=== PATIENT | male | born 1955 | race Caucasian/White ===

== ENCOUNTER → 2019-10-12 | Outpatient (CLI) | payer MEDICARE, OTHER ==
[2019-10-12 09:57] LABS: Hematocrit 48.8 % (37.0-53.0); Hemoglobin 16.6 g/dL (13.5-17.5); Mean Corpuscular HGB 31.8 pg (26.0-34.0); Mean Corpuscular Volume 94 fL (80-100); RDW Coefficient Variation 11.9 % (11.7-14.2); RDW Standard Deviation 41.7 fL (35.1-46.3); Red Blood Cell Count 5.22 M/mm3 (4.30-5.90)
[2019-10-12 09:59] LABS: Mean Platelet Volume 10.5 fL (9.1-12.4)
[2019-10-12 10:14] LABS: BASOPHILS ABSOLUTE MAN 0.15 K/mm3 (0.00-0.23); BASOPHILS PERCENT MAN 1 % (0-2); EOSINOPHILS ABSOLUTE MAN 0.77 K/mm3 (0.00-0.68); EOSINOPHILS PERCENT MAN 5 % (0-6); LYMPHOCYTES % ATYPICAL MANUAL 6 % (0-0); LYMPHOCYTES ABSOLUTE MAN 4.96 K/mm3 (0.84-5.20); LYMPHOCYTES PERCENT MAN 26 % (21-46); MONOCYTES ABSOLUTE MAN 1.24 K/mm3 (0.16-1.47); MONOCYTES PERCENT MAN 8 % (4-13); NEUTROPHILS ABSOLUTE MAN 8.37 K/mm3 (1.96-9.15); SEG NEUTROPHILS PERCENT MAN 54 % (41-73); TOTAL CELLS COUNTED 100
[2019-10-12 10:37] LABS: Alanine Aminotransfer (ALT/SGP 23 U/L (12-78); Albumin, Blood 3.9 g/dL (3.4-5.0); Alk Phos 85 U/L (50-136); Anion Gap 5 mmol/L (6-16); Aspartate Aminotrans (AST/SGOT 11 U/L (12-37); Bilirubin, Total 0.7 mg/dL (0.1-1.0); Blood Urea Nitrogen 12 mg/dL (8-24); CO2, Blood 24 mmol/L (21-32); Calcium, Blood 9.5 mg/dL (8.5-10.1); Chloride, Blood 108 mmol/L (98-108); Creatinine, Blood 0.46 mg/dL (0.60-1.20); Glomerular Filtration Rate >60 (60-); Glucose, Blood 156 mg/dL (70-99); Potassium, Blood 3.9 mmol/L (3.5-5.5); Sodium, Blood 137 mmol/L (136-145); Total Protein, Blood 7.9 g/dL (6.4-8.2)
== END ==
LOC: LAB 09:15 → LAB SHORT 09:15
PROVIDERS: Nurse Practitioner Family
DX: R10.84 Generalized abdominal pain (principal)
CPT/HCPCS: 80053; 83690; 85025

== ENCOUNTER 2021-05-10 10:30 | Observation (INO) | payer OTHER, MEDICARE ==
[~2021-05-10] VITALS: Ht 167.6 cm; Wt 83.9 kg
[~2021-05-10 10:30] MED LIST: AMLODIPINE BES2.5 MG PO; ATOR20 PO; GENTEAL TEARS3.5 GM BOTHEYES; ISOSORBIDE MONO60 MG PO; JARDIANCE25 MG PO; LOW DOSE ASPIRI81 M1 PO; METFORMIN HCL500 M3 PO; NITROGLYCERIN0.4 M3 SL
[2021-05-10 11:36] LABS: Hematocrit 47.2 % (37.0-53.0); Hemoglobin 16.2 g/dL (13.5-17.5); Mean Corpuscular HGB 32.3 pg (26.0-34.0); Mean Corpuscular HGB Conc 34.3 g/dL (31.5-36.5); Mean Corpuscular Volume 94 fL (80-100); RDW Coefficient Variation 12.9 % (11.7-14.2); RDW Standard Deviation 44.8 fL (35.1-46.3); Red Blood Cell Count 5.01 M/mm3 (4.30-5.90); White Blood Cell Count 16.73 K/mm3 (4.00-11.30)
[2021-05-10] MEDS ORDERED: LANTHANUM CARB500 MG (11:40)
[2021-05-10 11:44] LABS: Alanine Aminotransfer (ALT/SGP 22 U/L (12-78); Albumin, Blood 3.6 g/dL (3.4-5.0); Alk Phos 90 U/L (50-136); Anion Gap 5 mmol/L (6-16); Aspartate Aminotrans (AST/SGOT 14 U/L (12-37); Bilirubin, Total 0.6 mg/dL (0.1-1.0); Blood Urea Nitrogen 16 mg/dL (8-24); Bun/Creatinine Ratio 24.7 (12.0-20.0); CO2, Blood 28 mmol/L (21-32); Calcium, Blood 9.6 mg/dL (8.5-10.1); Chloride, Blood 106 mmol/L (98-108); Creatinine, Blood 0.65 mg/dL (0.60-1.20); Globulin, Blood 3.7 g/dL (2.2-4.0); Glomerular Filtration Rate >60 (60-); Glucose, Blood 162 mg/dL (70-99); Potassium, Blood 4.4 mmol/L (3.5-5.5); Sodium, Blood 139 mmol/L (136-145); Total Protein, Blood 7.3 g/dL (6.4-8.2)
[2021-05-10 11:49] LABS: Mean Platelet Volume 12.9 fL (9.1-12.4)
[2021-05-10 11:55] LABS: BASOPHILS ABSOLUTE MAN 0.16 K/mm3 (0.00-0.23); BASOPHILS PERCENT MAN 1 % (0-2); EOSINOPHILS ABSOLUTE MAN 0.16 K/mm3 (0.00-0.68); EOSINOPHILS PERCENT MAN 1 % (0-6); LYMPHOCYTES % ATYPICAL MANUAL 2 % (0-0); LYMPHOCYTES ABSOLUTE MAN 5.01 K/mm3 (0.84-5.20); LYMPHOCYTES PERCENT MAN 28 % (21-46); MONOCYTES ABSOLUTE MAN 1.33 K/mm3 (0.16-1.47); MONOCYTES PERCENT MAN 8 % (4-13); NEUTROPHILS ABSOLUTE MAN 10.03 K/mm3 (1.96-9.15); SEG NEUTROPHILS PERCENT MAN 60 % (41-73); TOTAL CELLS COUNTED 100
[2021-05-10] MEDS ORDERED: LATA.005SO BOTHEYES (13:24)
[2021-05-10 14:07] LABS: Source, Urine Clean Catch
[2021-05-10 14:12] LABS: Appearance, Urine Clear (Clear); Bilirubin, Urine Neg (Neg); Blood, Urine 1+ (Neg); Color, Urine Yellow (P-Yellow); Glucose Qualitative, Urine 4+ (Neg); Ketones, Urine 1+ (Neg); Leukocyte Esterase, Urine Neg (Neg); Nitrite, Urine Neg (Neg); Protein, Urine Neg (Neg); Urobilinogen, Urine NORM (Normal)
[2021-05-10 14:43] LABS: Bacteria Not Seen /hpf; Red Blood Cells, Urine 0-2 /hpf (0-2); Squamous Epithelial Cells Not Seen /hpf (Few); White Blood Cells, Urine Not Seen /hpf (0-5)
--- NOTE | 2021-05-10 14:44 | NUR ---
PT TO SDS FROM ER 12. ABX INFUSING AND MEDICATED FOR PAIN PRIOR TO ED DEPARTURE. NPO SINCE MIDNIGHT. VOIDS PRIOR TO SDS. History, Chart, Medications and Allergies reviewed before start of procedure. Lungs clear T/O to Auscultation.
[2021-05-10 15:05] LABS: SARS-Cov-2 (COVID-19) PCR, MMC NEGATIVE (NEGATIVE)
--- NOTE | 2021-05-10 18:34 | NUR ---
PT ARRIVED TO UNIT FROM PACU A&OX4. TRANSFERRED W/MINIMAL ASSIST FROM [place]PENISH TO BED AND THEN AMBULATED TO RESTROOM AND VOIDED 500 ML. DENIES PAIN, N/V OR SOB AT THIS TIME. CBG 151, DID NOT COVER; PT HAD NOT EATEN. ORIENTED TO ROOM AND CALL LIGHT.
[2021-05-11 04:48] LABS: BASOPHILS ABSOLUTE AUTO 0.02 K/mm3 (0.00-0.23); BASOPHILS PERCENT AUTO 0 % (0-2); EOSINOPHILS ABSOLUTE AUTO 0.01 K/mm3 (0.00-0.68); EOSINOPHILS PERCENT AUTO 0 % (0-6); Hematocrit 43.4 % (37.0-53.0); IMMATURE GRAN ABSOLUTE AUTO 0.04 K/mm3 (0.00-0.10); IMMATURE GRAN PERCENT AUTO 0 % (0-1); LYMPHOCYTES ABSOLUTE AUTO 2.35 K/mm3 (0.84-5.20); LYMPHOCYTES PERCENT AUTO 22 % (21-46); MONOCYTES ABSOLUTE AUTO 0.42 K/mm3 (0.16-1.47); MONOCYTES PERCENT AUTO 4 % (4-13); Mean Corpuscular HGB 32.4 pg (26.0-34.0); Mean Corpuscular HGB Conc 34.6 g/dL (31.5-36.5); Mean Corpuscular Volume 94 fL (80-100); NEUTROPHILS ABSOLUTE AUTO 7.66 K/mm3 (1.96-9.15); NEUTROPHILS PERCENT AUTO 73 % (41-73); RDW Coefficient Variation 12.7 % (11.7-14.2); RDW Standard Deviation 43.6 fL (35.1-46.3); Red Blood Cell Count 4.63 M/mm3 (4.30-5.90)
[2021-05-11 04:50] LABS: Platelet Count 126 K/mm3 (150-400)
--- NOTE | 2021-05-11 04:50 | NUR ---
SHIFT SUMMARY POD 1 FOR LAP APPY. X3 ABD LAP SITES W/STERI-STRIPS IN TACT. MINIMAL DRIED BLOOD TO LOWER ABD STERI-STRIP SITE. PT DENIES N/V AND IS TOLERATING A CLEAR LIQUID DIET AND FLUIDS W/O REPORT OF N/V. PT REPORTED SOME PAIN AND WAS MEDICATED PER EMAR. PT IS A&O X4 AND VERY PLEASANT. PT HAS APPEARED TO REST MOST OF THE NIGHT, COMFORTABLY IN HIS BED. PT CALLS APPROPRIATELY AND CALL LIGHT IS WITHIN REACH.
[2021-05-11] MEDS ORDERED: AMOCLA875 PO (13:51)
--- NOTE | 2021-05-11 14:30 | NUR ---
DISCHARGE PT HAS DONE VERY WELL TODAY. UP AMBULATING FREQ, VERY STEADY GAIT. TOLERATING DIET, PASSING GAS. PAIN WELL MANAGED w/ TORADOL. DECLINES W/C OUT & AMBULATES OUT w/ SPOUSE AT SIDE.
== END 2021-05-11 14:30 | disposition home or self-care (01) ==
LOC: ER 10:30 → SURS 10:31 → ER 13:56 → SURS 18:55
PROVIDERS: Emergency Medicine; ADMIT Surgery
PROC: 0DTJ4ZZ Resection of Appendix, Percutaneous Endoscopic Approach (ICD-10-PCS; principal; 2021-05-10 14:00)
DX: K35.33 Acute appendicitis with perforation, localized peritonitis, and gangrene, with abscess (principal); I10 Essential (primary) hypertension; E11.9 Type 2 diabetes mellitus without complications; Z88.5 Allergy status to narcotic agent; Z88.8 Allergy status to other drugs, medicaments and biological substances; Z87.891 Personal history of nicotine dependence; Z95.1 Presence of aortocoronary bypass graft; Z79.82 Long term (current) use of aspirin; Z79.84 Long term (current) use of oral hypoglycemic drugs; Z79.899 Other long term (current) drug therapy; Z20.822 Contact with and (suspected) exposure to COVID-19
CPT/HCPCS: 36415; 74177; 80053; 81001; 82947; 83690; 85025; 88304; 93005; 93010; 96365; 96375; 96376; 99285-25; A9270; G0378; J0694; J1100; J1815; J1885; J2250; J2270; J2405; J2704; J3010; J7030; J7120; Q9967; U0004

== ENCOUNTER 2022-06-07 15:10 | Day surgery (SDC) | payer OTHER ==
[~2022-06-07] VITALS: Ht 170.2 cm; Wt 84.2 kg
[~2022-06-07 15:10] MED LIST changes: +AMOCLA875 PO; +LANTHANUM CARB500 MG; +LATA.005SO BOTHEYES
--- NOTE | 2022-06-07 16:13 | NUR ---
06/07/22 1613 Carol Chi GTT: 1550 PLEDGITT: [id number]
== END 2022-06-07 17:21 | disposition home or self-care (01) ==
LOC: ORSCSDS 15:10
PROVIDERS: Ophthalmology
PROC: 08RK3JZ Replacement of Left Lens with Synthetic Substitute, Percutaneous Approach (ICD-10-PCS; principal; 2022-06-07 16:30)
DX: H25.12 Age-related nuclear cataract, left eye (principal); I10 Essential (primary) hypertension; I25.10 Atherosclerotic heart disease of native coronary artery without angina pectoris; Z87.891 Personal history of nicotine dependence; E11.9 Type 2 diabetes mellitus without complications; K21.9 Gastro-esophageal reflux disease without esophagitis; Z79.84 Long term (current) use of oral hypoglycemic drugs; Z79.899 Other long term (current) drug therapy; Z79.82 Long term (current) use of aspirin
CPT/HCPCS: 82947; J2001; J2250; J3010; J3301; J7040; V2632

== ENCOUNTER 2022-06-28 12:11 | Day surgery (SDC) | payer OTHER ==
[~2022-06-28] VITALS: Ht 170.2 cm; Wt 84.0 kg
--- NOTE | 2022-06-28 12:36 | NUR ---
06/28/22 1236 Shaun Miller CALL LIGHT WITHIN REACH. SLADE IN AT 1229 IN RIGHT EYE AND MIKE AT 1231
== END 2022-06-28 14:45 | disposition home or self-care (01) ==
LOC: ORSCSDS 12:11
DX: H25.11 Age-related nuclear cataract, right eye (principal); H40.1122 Primary open-angle glaucoma, left eye, moderate stage; H40.1111 Primary open-angle glaucoma, right eye, mild stage; H21.81 Floppy iris syndrome; I10 Essential (primary) hypertension; I25.10 Atherosclerotic heart disease of native coronary artery without angina pectoris; E11.9 Type 2 diabetes mellitus without complications; K21.9 Gastro-esophageal reflux disease without esophagitis; Z79.899 Other long term (current) drug therapy
CPT/HCPCS: 82947; J2001; J2250; J3010; J3301; J7040; V2632

== ENCOUNTER 2024-08-14 09:02 | Inpatient (IN) | payer MEDICARE, OTHER ==
[~2024-08-14] VITALS: Ht 167.6 cm; Wt 74.8 kg
[2024-08-14] MEDS ORDERED: Ondansetron HCl 2 MG / ML 2ML Vial IV PRN ×2 (10:05→14:05)
[2024-08-14 10:49] LABS: Albumin, Blood 3.9 g/dL (3.4-5.0); Albumin/Globulin Ratio 1.1 (0.8-1.8); Bilirubin, Total 0.5 mg/dL (0.1-1.0); Bun/Creatinine Ratio 29.6 (12.0-20.0); Calcium, Blood 9.6 mg/dL (8.5-10.1); Creatinine, Blood 0.54 mg/dL (0.60-1.20); Globulin, Blood 3.4 g/dL (2.2-4.0); Potassium, Blood 4.6 mmol/L (3.5-5.5); Total Protein, Blood 7.3 g/dL (6.4-8.2)
[2024-08-14 11:25] LABS: BASOPHILS ABSOLUTE AUTO 0.06 K/mm3 (0.00-0.23); BASOPHILS PERCENT AUTO 0 % (0-2); EOSINOPHILS ABSOLUTE AUTO 0.06 K/mm3 (0.00-0.68); EOSINOPHILS PERCENT AUTO 0 % (0-6); Hematocrit 47.8 % (37.0-53.0); Mean Corpuscular HGB 32.7 pg (26.0-34.0); Mean Corpuscular HGB Conc 33.5 g/dL (31.5-36.5); Mean Corpuscular Volume 98 fL (80-100); RDW Coefficient Variation 12.8 % (11.7-14.2); RDW Standard Deviation 45.8 fL (35.1-46.3); White Blood Cell Count 15.06 K/mm3 (4.00-11.30)
[2024-08-14 11:27] LABS: IMMATURE GRAN ABSOLUTE AUTO 0.07 K/mm3 (0.00-0.10); IMMATURE GRAN PERCENT AUTO 1 % (0-1); LYMPHOCYTES ABSOLUTE AUTO 5.71 K/mm3 (0.84-5.20); LYMPHOCYTES PERCENT AUTO 38 % (21-46); MONOCYTES ABSOLUTE AUTO 0.67 K/mm3 (0.16-1.47); MONOCYTES PERCENT AUTO 4 % (4-13); NEUTROPHILS ABSOLUTE AUTO 8.49 K/mm3 (1.96-9.15); NEUTROPHILS PERCENT AUTO 56 % (41-73)
[2024-08-14] MEDS ORDERED: FentaNYL Citrate 50 MCG/ML 2 ML Injection IV ONE (11:40)
[2024-08-14 12:50] LABS: BASOPHILS PERCENT MAN 0 % (0-2); EOSINOPHILS PERCENT MAN 0 % (0-6); LYMPHOCYTES % ATYPICAL MANUAL 1 % (0-0); LYMPHOCYTES ABSOLUTE MAN 5.42 K/mm3 (0.84-5.20); LYMPHOCYTES PERCENT MAN 35 % (21-46); METAMYELOCYTE ABSOLUTE MAN 0.15 K/mm3 (0.00-0.00); METAMYELOCYTE PERCENT MAN 1 % (0-0); MONOCYTES ABSOLUTE MAN 0.45 K/mm3 (0.16-1.47); MONOCYTES PERCENT MAN 3 % (4-13); NEUTROPHILS ABSOLUTE MAN 9.03 K/mm3 (1.96-9.15); SEG NEUTROPHILS PERCENT MAN 60 % (41-73); TOTAL CELLS COUNTED 100
[2024-08-14] MEDS ORDERED: HYDROmorphone HCl/Pf 1MG SYR IV ONE (13:30)
[2024-08-14] MEDS ORDERED: HYDROmorphone HCl/Pf 1MG SYR IV PRN (14:05)
[2024-08-14] MEDS ORDERED: FLU VACC TS2024-25(6MOS UP)/PF 45 MCG/0.5 ML SYRINGE IM SCH (14:10)
[2024-08-14] MEDS ORDERED: Vitamin D1000 UNI1 PO (14:32)
[2024-08-14] MEDS ORDERED: Amoxicillin500 MG PO (14:32)
[2024-08-14] MEDS ORDERED: DICLOFENAC SOD100 GM TOP (14:33)
[2024-08-14] MEDS ORDERED: DORZOPSO BOTHEYES (14:33)
[2024-08-14] MEDS ORDERED: Alphagan P5 ML BOTHEYES (14:34)
[2024-08-14] MEDS ORDERED: TIMO.5OPSO BOTHEYES (14:35)
[2024-08-14] MEDS ORDERED: NS 1,000 ML IV SCH (15:00)
[2024-08-14] MEDS ORDERED: Ampicillin Sod/Sulbactam Sod 3 GM in NS 100 ML IV SCH (15:00)
[2024-08-14 16:26] VITALS: BP 168/69
[2024-08-14] MEDS ORDERED: Insulin Human Lispro 100 Units/ML 3ML Syringe SC SCH (16:30)
--- NOTE | 2024-08-14 18:29 | NUR ---
ADMISSION: REPORT RECEIVED FROM ED RN. PT TO UNIT AT 1620, A/O, VSS. PT ABLE TO AMBULATE FROM GURNEY TO BED. PT REPORTS MINIMAL AT AT THIS TIME. REPORTS ABLE TO PASS SOME GAS. PT INSTRUCTED TO USE CALL LIGHT FOR IF NEED ASSISTANCE. PT ABLE TO MAKE NEEDS KNOWN
[2024-08-14 19:54] VITALS: BP 151/66
[2024-08-14] MEDS ORDERED: Latanoprost 0.005% Opth Soln 2.5 ML BOTHEYES SCH (21:00)
[2024-08-14] MEDS ORDERED: AmLODIPine Besylate 5 MG Tab PO SCH (21:00)
[2024-08-14] MEDS ORDERED: Atorvastatin 40 MG Tab PO SCH (21:00)
[2024-08-14] MEDS ORDERED: Timolol 0.5% Opth Soln 5 ML BOTHEYES SCH (21:00)
--- NOTE | 2024-08-15 04:23 | NUR ---
SHIFT SUMMARY; PATIENT SLEPT IN LONG INTERVALS, MEDICATED TWICE FOR PAIN, NPO AFTER MIDNIGHT.VSS. NS/75ML/HR ALL NIGHT.
[2024-08-15 04:54] LABS: Hemoglobin 14.7 g/dL (13.5-17.5); Mean Corpuscular HGB 33.2 pg (26.0-34.0); Mean Corpuscular HGB Conc 34.2 g/dL (31.5-36.5); Mean Corpuscular Volume 97 fL (80-100); Platelet Count 113 K/mm3 (150-400); RDW Coefficient Variation 12.8 % (11.7-14.2); RDW Standard Deviation 45.9 fL (35.1-46.3); Red Blood Cell Count 4.43 M/mm3 (4.30-5.90); White Blood Cell Count 14.93 K/mm3 (4.00-11.30)
[2024-08-15 05:37] LABS: Albumin, Blood 3.1 g/dL (3.4-5.0); Albumin/Globulin Ratio 1.1 (0.8-1.8); Bilirubin, Total 0.7 mg/dL (0.1-1.0); Bun/Creatinine Ratio 25.6 (12.0-20.0); Calcium, Blood 8.8 mg/dL (8.5-10.1); Creatinine, Blood 0.51 mg/dL (0.60-1.20); Globulin, Blood 2.7 g/dL (2.2-4.0); Potassium, Blood 3.9 mmol/L (3.5-5.5); Total Protein, Blood 5.8 g/dL (6.4-8.2)
[2024-08-15 06:24] VITALS: BP 145/69
[2024-08-15 07:36] VITALS: BP 131/58
[2024-08-15] MEDS ORDERED: Heparin Sodium 5000 Units/ML 1ML MDV SC SCH (09:00)
[2024-08-15] MEDS ORDERED: Isosorbide Mononitrate 60 MG TABCR PO SCH (09:00)
[2024-08-15] MEDS ORDERED: Aspirin 81 MG TabEC PO SCH (09:00)
[2024-08-15] MEDS ORDERED: Cholecalciferol 1000 Unit Tablet (=25MCG) PO SCH (09:00)
[2024-08-15 14:10] VITALS: BP 159/76
[2024-08-15] MEDS ORDERED: D5W-1/2NS 1,000 ML IV SCH (14:25)
--- NOTE | 2024-08-15 16:33 | NUR ---
SHIFT SUMMARY PT NEW DIAGNOSIS OF SBO PER CT SCAN. PLAN TO INSERT NGT TO LIS BEFORE SHIFT CHANGE PER DR. MURRAY. ABD DISTENDED AND INTERMITTENTLY PAINFUL. 1MG IV DILAUDID FOR PAIN CONTROL. PT INDEP TO THE RESTROOM. NAUSEA X1 WITH SCANT CLEAR EMESIS. IVF INFUSING PER ORDERS. AT BEDSIDE FOR SUPPORT. CALL LIGHT WITHIN REACH.
--- NOTE | 2024-08-15 18:10 | NUR ---
NGT TO LIS. LIGHT GREEN DRAINAGE PRESENT IN CANISTER. PT TOLERATED PROCEDURE WELL. VERIFIED PLACEMENT BY XRAY.
[2024-08-15 19:38] VITALS: BP 138/65
[2024-08-16 05:24] VITALS: BP 145/69
[2024-08-16 05:27] LABS: Hematocrit 49.3 % (37.0-53.0); Hemoglobin 16.9 g/dL (13.5-17.5); Mean Corpuscular HGB 33.1 pg (26.0-34.0); Mean Corpuscular HGB Conc 34.3 g/dL (31.5-36.5); Mean Corpuscular Volume 97 fL (80-100); RDW Coefficient Variation 12.5 % (11.7-14.2); RDW Standard Deviation 44.7 fL (35.1-46.3); White Blood Cell Count 16.49 K/mm3 (4.00-11.30)
[2024-08-16 05:32] LABS: Mean Platelet Volume 10.2 fL (9.1-12.4); Platelet Count 147 K/mm3 (150-400)
[2024-08-16 05:48] LABS: Bun/Creatinine Ratio 25.8 (12.0-20.0); Calcium, Blood 8.7 mg/dL (8.5-10.1); Creatinine, Blood 0.54 mg/dL (0.60-1.20); Potassium, Blood 3.8 mmol/L (3.5-5.5)
[2024-08-16 05:54] LABS: BASOPHILS PERCENT MAN 0 % (0-2); EOSINOPHILS PERCENT MAN 0 % (0-6); LYMPHOCYTES % ATYPICAL MANUAL 11 % (0-0); LYMPHOCYTES PERCENT MAN 26 % (21-46); MONOCYTES ABSOLUTE MAN 0.98 K/mm3 (0.16-1.47); MONOCYTES PERCENT MAN 6 % (4-13); NEUTROPHILS ABSOLUTE MAN 9.39 K/mm3 (1.96-9.15); SEG NEUTROPHILS PERCENT MAN 57 % (41-73); TOTAL CELLS COUNTED 100
--- NOTE | 2024-08-16 06:09 | NUR ---
SHIFT SUMMARY AOX4. VSS. NGT R NARES TO LIS, 850ML DRK GREEN/BROWN DRAINAGE OUT THIS SHIFT. PT DENIES N/V, CURRENTLY NPO EXCEPT ICE CHIPS. REPORTS 3/ ABD PAIN, MEDICATED 2x W/IV DILAUDID & PT ABLE TO REST WELL. IND W/URINAL, VOID MULT TIMES. CALL LIGHT IN REACH.
[2024-08-16 07:25] VITALS: BP 162/71
[2024-08-16] MEDS ORDERED: FentaNYL Citrate 50 MCG/ML 2 ML Injection IV PRN (07:50)
[2024-08-16] MEDS ORDERED: D5W-1/2NS 1,000 ML IV SCH (08:45)
[2024-08-16] MEDS ORDERED: Ondansetron HCl 2 MG / ML 2ML Vial IV PRN (11:00)
[2024-08-16] MEDS ORDERED: Ketorolac Tromethamine 30mg Vial IV PRN (11:00)
[2024-08-16 14:41] VITALS: BP 157/68
--- NOTE | 2024-08-16 17:04 | NUR ---
SHIFT SUMMARY PT ABD LESS DISTENDED AND SOFTER THIS EVENING. TOTAL NGT AMOUNT THIS SHIFT WAS 1100ML OF DARK GREEN DRAINAGE. NGT OUTPUT HAS SLOWED DOWN THIS EVENING COMPARED TO EARLIER THIS MORNING. PT REPORTS FLATUS T/O DAY AND WAS ABLE TO HAVE A LARGE SOLID BM THIS EVENING. PT HAS BEEN INDEP AMBULATING HALLWAY AND TOLERATING NGT BEING CLAMPED DURING THOSE WALKS. PT REPORTS LESS PAIN WITH TORADOL AND DESCRIBES HIS PAIN "HUNGER PAINS". IVF INFUSING PER ORDERS. PT STATES HE FEELS "BETTER" OVERALL AND HOPES TO HAVE THE NGT REMOVED TOMORROW. VSS. PT USES CALL LIGHT APPROPRIATELY.
[2024-08-16 19:24] VITALS: BP 152/69
[2024-08-16] MEDS ORDERED: Insulin Human Lispro 100 Units/ML 3ML Syringe SC SCH ×2 (21:00)
--- NOTE | 2024-08-17 01:29 | NUR ---
ASSUMED CARE @0100 REPORT FROM CHAN WEINER, PATIENT IS RESTING WITH CALL LIGHT IN REACH.
[2024-08-17 04:53] VITALS: BP 138/77
[2024-08-17 05:07] LABS: Hematocrit 42.7 % (37.0-53.0); Hemoglobin 14.8 g/dL (13.5-17.5); Mean Corpuscular HGB 32.9 pg (26.0-34.0); Mean Corpuscular HGB Conc 34.7 g/dL (31.5-36.5); Mean Corpuscular Volume 95 fL (80-100); RDW Coefficient Variation 12.5 % (11.7-14.2); RDW Standard Deviation 43.7 fL (35.1-46.3); White Blood Cell Count 13.82 K/mm3 (4.00-11.30)
--- NOTE | 2024-08-17 05:19 | NUR ---
SUMMARY PATIENT IS RESTING AT THIS TIME, DENIES NEEDS. REPORTS PASSING FLATUS, VSS. IND IN ROOM. POSSIBLE DC HOME TODAY.
[2024-08-17 05:27] LABS: Anion Gap 11 mmol/L (3-11); Blood Urea Nitrogen 18 mg/dL (8-24); Bun/Creatinine Ratio 44.7 (12.0-20.0); CO2, Blood 25 mmol/L (21-32); Calcium, Blood 8.5 mg/dL (8.5-10.1); Chloride, Blood 107 mmol/L (98-108); Glomerular Filtration Rate 117 (60-); Glucose, Blood 173 mg/dL (70-99); Potassium, Blood 3.7 mmol/L (3.5-5.5); Sodium, Blood 139 mmol/L (136-145)
[2024-08-17 07:05] VITALS: BP 132/68
--- NOTE | 2024-08-17 08:19 | NUR ---
A&OX4, STATES HAVING MILD ABD PAIN, DENIES ANY NEED FOR PAIN MEDS AT THIS TIME, REPORTS FEELING HUNGRY TODAY, REPORTS PASSING FLATUS AND HAVING BM'S YESTERDAY, INDEPENDENT IN ROOM, CONT. TO MONITOR FOR ANY CHANGES.
[2024-08-17 10:42] VITALS: BP 133/76
--- NOTE | 2024-08-17 10:50 | NUR ---
DISCHARGE DC'D HOME, DC INSTRUCTIONS GIVEN, VERBALIZED UNDERSTANDING, IV DC'D, CATH INTACT.
== END 2024-08-17 10:47 | disposition home or self-care (01) | DRG 445 ==
LOC: ER 09:02 → MEDS 09:03 → SURS 09:03
PROVIDERS: Emergency Medicine; Family Medicine; ADMIT Internal Medicine
PROC: 0D9670Z Drainage of Stomach with Drainage Device, Via Natural or Artificial Opening (ICD-10-PCS; principal; 2024-08-15)
DX: K80.00 Calculus of gallbladder with acute cholecystitis without obstruction (principal); K56.609 Unspecified intestinal obstruction, unspecified as to partial versus complete obstruction; E11.9 Type 2 diabetes mellitus without complications; I10 Essential (primary) hypertension; Z95.1 Presence of aortocoronary bypass graft; I25.10 Atherosclerotic heart disease of native coronary artery without angina pectoris; Z88.5 Allergy status to narcotic agent; Z88.8 Allergy status to other drugs, medicaments and biological substances; Z98.890 Other specified postprocedural states; Z87.891 Personal history of nicotine dependence; Z90.49 Acquired absence of other specified parts of digestive tract; Z79.82 Long term (current) use of aspirin; Z79.84 Long term (current) use of oral hypoglycemic drugs; Z79.899 Other long term (current) drug therapy
CPT/HCPCS: 36415; 71045; 74177; 76705; 80048; 80053; 80069; 82947; 83690; 84484; 85025; 85027; 87040; 93005; 93010; 96365; 96366; 96372; 96375; 96376; 99285-25; A9270; G0378; J0295; J1171; J1644; J1885; J2405; J3010; J7030; J7042; Q9967

== ENCOUNTER → 2024-08-26 | Outpatient (CLI) | payer MEDICARE, OTHER ==
[~2024-08-26] MED LIST changes: +Alphagan P5 ML BOTHEYES; +Amoxicillin500 MG PO; +DICLOFENAC SOD100 GM TOP; +DORZOPSO BOTHEYES; +TIMO.5OPSO BOTHEYES; +Vitamin D1000 UNI1 PO
== END ==
LOC: LAB SHORT 17:26 → LAB 17:26
DX: E11.65 Type 2 diabetes mellitus with hyperglycemia (principal)
CPT/HCPCS: 82043

== ENCOUNTER 2024-09-08 04:09 | Observation (INO) | payer MEDICARE, OTHER ==
[~2024-09-08] VITALS: Ht 167.6 cm; Wt 76.9 kg
[2024-09-08] MEDS ORDERED: NS 1,000 ML IV SCH ×2 (04:35→06:15)
[2024-09-08] MEDS ORDERED: Ondansetron HCl 2 MG / ML 2ML Vial IV ONE (04:35)
[2024-09-08] MEDS ORDERED: Morphine Sulfate 4 MG/1 ML Injection IV ONE (04:35)
[2024-09-08 05:08] LABS: Mean Corpuscular HGB 32.5 pg (26.0-34.0); Mean Corpuscular HGB Conc 34.7 g/dL (31.5-36.5); Mean Corpuscular Volume 94 fL (80-100); RDW Coefficient Variation 12.1 % (11.7-14.2); RDW Standard Deviation 42.1 fL (35.1-46.3); Red Blood Cell Count 5.23 M/mm3 (4.30-5.90)
[2024-09-08 05:17] LABS: Albumin, Blood 3.9 g/dL (3.4-5.0); Albumin/Globulin Ratio 1.2 (0.8-1.8); Bilirubin, Total 0.6 mg/dL (0.1-1.0); Bun/Creatinine Ratio 48.8 (12.0-20.0); Creatinine, Blood 0.45 mg/dL (0.60-1.20); Globulin, Blood 3.3 g/dL (2.2-4.0); Potassium, Blood 3.8 mmol/L (3.5-5.5); Total Protein, Blood 7.2 g/dL (6.4-8.2)
[2024-09-08 06:02] LABS: BAND PERCENT MAN 1 % (0-8); BASOPHILS PERCENT MAN 0 % (0-2); EOSINOPHILS PERCENT MAN 1 % (0-6); LYMPHOCYTES % ATYPICAL MANUAL 2 % (0-0); LYMPHOCYTES PERCENT MAN 31 % (21-46); MONOCYTES PERCENT MAN 3 % (4-13); SEG NEUTROPHILS PERCENT MAN 62 % (41-73); TOTAL CELLS COUNTED 100
[2024-09-08] MEDS ORDERED: FLU VACC TS2024-25(6MOS UP)/PF 45 MCG/0.5 ML SYRINGE IM ONE (06:15)
[2024-09-08] MEDS ORDERED: Ondansetron HCl 2 MG / ML 2ML Vial IV PRN (06:15)
[2024-09-08] MEDS ORDERED: FentaNYL Citrate 50 MCG/ML 2 ML Injection IV PRN (06:15)
[2024-09-08] MEDS ORDERED: Midazolam HCl 1MG / ML 2ML Vial IV ONE (06:30)
[2024-09-08 06:40] LABS: Source, Urine Clean Catch
[2024-09-08 06:44] LABS: EOSINOPHILS ABSOLUTE MAN 0.19 K/mm3 (0.00-0.68); LYMPHOCYTES ABSOLUTE MAN 6.53 K/mm3 (0.84-5.20); MONOCYTES ABSOLUTE MAN 0.59 K/mm3 (0.16-1.47); Mean Platelet Volume 8.8 fL (9.1-12.4); NEUTROPHILS ABSOLUTE MAN 12.46 K/mm3 (1.96-9.15); White Blood Cell Count 19.79 K/mm3 (4.00-11.30)
[2024-09-08 06:45] LABS: Platelet Count 156 K/mm3 (150-400)
[2024-09-08 06:49] LABS: Appearance, Urine Clear (Clear); Bilirubin, Urine Neg (Neg); Blood, Urine Neg (Neg); Color, Urine Yellow (P-Yellow); Glucose Qualitative, Urine 4+ (Neg); Ketones, Urine 2+ (Neg); Leukocyte Esterase, Urine Neg (Neg); Nitrite, Urine Neg (Neg); Protein, Urine Neg (Neg); Specific Gravity, Urine 1.015 (1.003-1.022); Urobilinogen, Urine NORM (Normal)
[2024-09-08] MEDS ORDERED: Insulin Human Lispro 100 Units/ML 3ML Syringe SC SCH (07:30)
[2024-09-08 08:29] VITALS: BP 131/71
--- NOTE | 2024-09-08 08:40 | NUR ---
ARRIVAL PT ARRIVED TO UNIT FROM OR AT 0830. PT REPORTS ABD PAIN IS 1/10, REPORTS HE WAS MEDICATED "RIGHT BEFORE" TRANSPORT TO UNIT AND STATES HIS PAIN IS MUCH IMPROVED. ABD TENDER IN EPIGASTRIC/LUQ W/PALPATION, DENIES N/V AT THIS TIME. REPORTS LAST HAD SMALL BM LAST NIGHT, VOMITED MULTIPLE TIMES BUT STATES THAT WAS MORE PAIN RELATED. LUNGS CLEAR T/O, DENIES CP OR SOB. PT IS A/O X'S 4, INDEPENDENT IN AMBULATION. WILL KEEP PT NPO AT THIS TIME. AT BEDSIDE
[2024-09-08] MEDS ORDERED: Lactated Ringer's 1,000 ML IV SCH (10:55)
--- NOTE | 2024-09-08 14:09 | NUR ---
TELEMETRY DISCONTINUED AND SENT BACK TO PCU AT APROX 1400
--- NOTE | 2024-09-08 14:14 | NUR ---
PT TO IMMAGING AT APROX 1410
[2024-09-08] MEDS ORDERED: SUMAtriptan Succinate 25 MG Tab PO ONE (15:15)
[2024-09-08] MEDS ORDERED: Acetaminophen 325 MG TABLET PO PRN (15:15)
--- NOTE | 2024-09-08 15:20 | NUR ---
PT C/O HEADACHE, DR ALBERTO NOTIFIED. NEW ORDER FOR 650MG TYLENOL Q6 PRN HEADACHE. IF THAT DOES NOT PROVIDE RELIEF MAY DO 25MG IMITREX ONE TIME DOSE. ALSO NEW ORDER FOR ICE CHIPS AND SIPS OF WATER.
[2024-09-08 16:07] VITALS: BP 147/63
[2024-09-08 16:08] VITALS: BP 147/63
--- NOTE | 2024-09-08 18:56 | NUR ---
SHIFT SUMMARY PT COMPLETED SM BOWEL FOLLOW THROUGH, HAS HAD MULTIPLE LIQUID BM'S SINCE STUDY COMPLETE. PT REPORTS ABD PAIN IMPROVED. PT MEDICATED ONCE FOR HEADACHE (SEE PREVIOUS NOTE) IVF 75ML/HR. MEDICATED ONCE FOR N/V, RESOLVED FOLLOWING ZOFRAN. VOIDING W/O DIFFICULTY. AWAITING PLAN FROM SURGEON.
[2024-09-08 19:39] VITALS: BP 135/62
[2024-09-09 04:09] VITALS: BP 145/64
[2024-09-09 05:46] LABS: Hematocrit 45.8 % (37.0-53.0); Hemoglobin 15.7 g/dL (13.5-17.5); Mean Corpuscular HGB 32.9 pg (26.0-34.0); Mean Corpuscular HGB Conc 34.3 g/dL (31.5-36.5); Mean Corpuscular Volume 96 fL (80-100); RDW Coefficient Variation 12.4 % (11.7-14.2); RDW Standard Deviation 44.2 fL (35.1-46.3); Red Blood Cell Count 4.77 M/mm3 (4.30-5.90)
[2024-09-09 05:57] LABS: Albumin, Blood 3.5 g/dL (3.4-5.0); Albumin/Globulin Ratio 1.1 (0.8-1.8); Bilirubin, Total 0.6 mg/dL (0.1-1.0); Calcium, Blood 8.9 mg/dL (8.5-10.1); Creatinine, Blood 0.57 mg/dL (0.60-1.20); Globulin, Blood 3.1 g/dL (2.2-4.0); Potassium, Blood 3.9 mmol/L (3.5-5.5); Total Protein, Blood 6.6 g/dL (6.4-8.2)
[2024-09-09 06:02] LABS: BAND PERCENT MAN 1 % (0-8); BASOPHILS PERCENT MAN 2 % (0-2); EOSINOPHILS PERCENT MAN 0 % (0-6); LYMPHOCYTES % ATYPICAL MANUAL 5 % (0-0); LYMPHOCYTES ABSOLUTE MAN 9.48 K/mm3 (0.84-5.20); LYMPHOCYTES PERCENT MAN 57 % (21-46); MONOCYTES ABSOLUTE MAN 0.61 K/mm3 (0.16-1.47); MONOCYTES PERCENT MAN 4 % (4-13); Mean Platelet Volume 10.2 fL (9.1-12.4); NEUTROPHILS ABSOLUTE MAN 4.89 K/mm3 (1.96-9.15); Platelet Count 125 K/mm3 (150-400); SEG NEUTROPHILS PERCENT MAN 31 % (41-73); TOTAL CELLS COUNTED 100
--- NOTE | 2024-09-09 06:16 | NUR ---
NOC SUMMARY- PT HAD NO ISSUES NOTED. PT RESTED WELL. PT DENIES ANY PAIN OR N/V. PT TOLERATING SIPS AND CHIPS. PT CURRENTLY AWAKE AND IN NO DISTRESS. CALL LIGHT IN REACH.
[2024-09-09 07:29] VITALS: BP 132/64
[2024-09-09] MEDS ORDERED: ACET325 PO (12:53)
[2024-09-09 14:14] VITALS: BP 141/73
--- NOTE | 2024-09-09 14:18 | NUR ---
DISCHARGE NOTE PT IS ALERT, RESPONSIVE, AMBULATING HALLS INDEPENDENTLY. PT DENIES PAIN AND NAUSEA, TOLERATING FULL LIQUIDS. PT VOIDING WELL. CHARGE NURSE REVIEWED DC INSTRUCTIONS W/ PT, COPY GIVEN. PT DC'D IN STABLE CONDITION W/ BELONGINGS, OPTED TO AMBULATE OUT OF HOSPITAL TO PRIVATE [facility] HOME.
== END 2024-09-09 13:30 | disposition home or self-care (01) ==
LOC: ER 04:09 → SURS 04:10 → ER 06:12 → SURS 06:12
PROVIDERS: Emergency Medicine; ADMIT Internal Medicine
DX: K56.600 Partial intestinal obstruction, unspecified as to cause (principal); I25.10 Atherosclerotic heart disease of native coronary artery without angina pectoris; I10 Essential (primary) hypertension; C91.10 Chronic lymphocytic leukemia of B-cell type not having achieved remission; E11.65 Type 2 diabetes mellitus with hyperglycemia; Z95.1 Presence of aortocoronary bypass graft; Z79.84 Long term (current) use of oral hypoglycemic drugs; Z79.82 Long term (current) use of aspirin; Z79.899 Other long term (current) drug therapy; Z87.891 Personal history of nicotine dependence; Z88.5 Allergy status to narcotic agent; Z88.8 Allergy status to other drugs, medicaments and biological substances
CPT/HCPCS: 36415; 74177; 74250; 80053; 81003; 82947; 83605; 83690; 83880; 85025; 96361; 96374; 96375; 99285-25; A9270; J2270; J2405; J3010; J7030; J7120; Q9963; Q9967

== ENCOUNTER → 2025-02-04 | Outpatient (CLI) | payer MEDICARE, OTHER ==
[~2025-02-04] MED LIST changes: +ACET325 PO
[2025-02-04 16:24] LABS: Alanine Aminotransfer (ALT/SGP 20.0 U/L (12-78); Albumin, Blood 3.6 g/dL (3.4-5.0); Albumin/Globulin Ratio 1.2 (0.8-1.8); Anion Gap 8.0 mmol/L (3-11); Aspartate Aminotrans (AST/SGOT 11.0 U/L (12-37); Bilirubin, Total 0.4 mg/dL (0.1-1.0); Blood Urea Nitrogen 15.0 mg/dL (8-24); CO2, Blood 26.0 mmol/L (21-32); Calcium, Blood 9.0 mg/dL (8.5-10.1); Chloride, Blood 105.0 mmol/L (98-108); Creatinine, Blood 0.57 mg/dL (0.60-1.20); Globulin, Blood 3.1 g/dL (2.2-4.0); Glucose, Blood 271.0 mg/dL (70-99); Potassium, Blood 4.1 mmol/L (3.5-5.5); Sodium, Blood 135.0 mmol/L (136-145); Total Protein, Blood 6.7 g/dL (6.4-8.2)
== END ==
LOC: LAB 13:35 → LAB SHORT 13:35
DX: E53.8 Deficiency of other specified B group vitamins (principal)
CPT/HCPCS: 80053; 82607; 82746

== ENCOUNTER 2025-05-12 14:24 | Emergency (ER) | payer OTHER ==
[~2025-05-12] VITALS: Ht 167.6 cm; Wt 74.8 kg
[2025-05-12 14:37] VITALS: BP 124/81
[2025-05-12] MEDS ORDERED: ACET500 PO (16:01)
== END 2025-05-12 16:54 | disposition home or self-care (01) ==
LOC: ER 14:24
DX: S01.01XA Laceration without foreign body of scalp, initial encounter (principal); Z87.891 Personal history of nicotine dependence; Z79.84 Long term (current) use of oral hypoglycemic drugs; Z79.82 Long term (current) use of aspirin; Z79.899 Other long term (current) drug therapy; W01.198A Fall on same level from slipping, tripping and stumbling with subsequent striking against other object, initial encounter
CPT/HCPCS: 12013; 70450; 99284-25